=== PATIENT | female | born 1985 | race Caucasian/White ===

== ENCOUNTER 2017-07-19 17:35 | Emergency (ER) | payer OTHER ==
[~2017-07-19] VITALS: Ht 149.9 cm; Wt 60.5 kg
[2017-07-19] MEDS ORDERED: IBUPROFEN 600 MG TABLET ONE (17:51)
[2017-07-19 19:40] LABS: BASOPHILS % (AUTO) 0.2 % (0.0-2.0); EOSINOPHILS % (AUTO) 0.3 % (1.0-6.0); HEMATOCRIT 37.9 % (36-46); HEMOGLOBIN 12.9 g/dL (12.0-16.0); LYMPHOCYTES # (AUTO) 0.7 K/uL (1.0-4.8); LYMPHOCYTES % (AUTO) 5.5 % (22.0-44.0); MEAN CORPUSCULAR HEMOGLOBIN 31.4 pg (26.0-34.0); MEAN CORPUSCULAR HGB CONC 34.1 G/dL (31.0-37.0); MEAN CORPUSCULAR VOLUME 92 fL (80-100); MONOCYTES # (AUTO) 0.2 K/uL (0.1-1.0); MONOCYTES % (AUTO) 1.9 % (2.0-9.0); NEUTROPHILS # (AUTO) 11.2 K/uL (1.8-7.7); PLATELET COUNT (AUTO) 214 K/uL (150-450); RED BLOOD CELL COUNT(AUTO) 4.13 MIL/uL (4.00-5.20); RED CELL DISTRIBUTION WIDTH 13.3 % (11.5-14.5); WHITE BLOOD COUNT (AUTO) 12.2 K/uL (4.5-11.0)
[2017-07-19 19:41] LABS: NEUTROPHILS % (AUTO) 92.1 % (40.0-70.0); RBC MORPHOLOGY COMMENT NORMAL RBC MORPH
[2017-07-19 19:56] LABS: ANION GAP 11 mmol/L (8-16); CALCIUM, TOTAL 8.6 mg/dL (8.8-10.5); CARBON DIOXIDE 22 mmol/L (22-29); CHLORIDE 102 mmol/L (98-107); CREATININE 0.79 mg/dL (0.60-1.30); GLOMERULAR FILTR. RATE CALC > 60 mL/min (>60); POTASSIUM 3.3 mmol/L (3.5-5.1); SODIUM SERUM 135 mmol/L (136-145); UREA NITROGEN, BLOOD 6 mg/dL (7-18)
[2017-07-19 20:01] LABS: ALANINE AMINOTRANSFERASE 14 U/L (12-78); ALBUMIN 3.9 g/dL (3.4-5.0); BILIRUBIN,TOTAL 0.3 mg/dL (0.1-1.0); TOTAL PROTEIN, SERUM 7.3 g/dL (6.4-8.2)
[2017-07-19 20:09] LABS: APPEARANCE,URINE CLOUDY (CLEAR); GLUCOSE, URINE (UA) NEGATIVE (NEGATIVE); KETONES,URINE NEGATIVE (NEGATIVE); LEUKOCYTE ESTERASE ,URINE MODERATE (NEGATIVE); OCCULT BLOOD,URINE TRACE (NEGATIVE); PROTEIN,URINE NEGATIVE (NEGATIVE)
[2017-07-19 20:15] LABS: ADD UA MICROSCOPIC YES
[2017-07-19 20:16] LABS: ASPARTATE AMINOTRANSFERASE 13 U/L (15-37)
[2017-07-19 20:35] LABS: SQUAMOUS EPITHELIAL CELL,UR Moderate /LPF (None Seen)
[2017-07-19 20:36] LABS: WBC,URINE 26-50 /HPF (0-5)
[2017-07-19 20:37] LABS: RBC,URINE 0-2 /HPF (0-2)
[2017-07-19] MEDS ORDERED: CefTRIAXone SODIUM 1 GM/VIAL IM ONE (21:00)
[2017-07-19] MEDS ORDERED: SULFAMETHOX/TRIMETH DS 800-160 MG/TABLET PO ONE (21:00)
[2017-07-19] MEDS ORDERED: LIDOCAINE HCL/PF 1% 2 ML VIAL IM ONE (21:00)
[2017-07-19] MEDS ORDERED: SODIUM CHLORIDE 0.9% 1,000 ML IV ONE ×2 (21:15)
[2017-07-19 21:45] VITALS: BP 109/58
== END 2017-07-19 22:05 | disposition home or self-care (01) ==
LOC: EMS 17:38
DX: N39.0 Urinary tract infection, site not specified (principal); L08.9 Local infection of the skin and subcutaneous tissue, unspecified; H92.03 Otalgia, bilateral
CPT/HCPCS: 36415; 80053; 81001; 81025; 85025; 87086; 96372; 99284; J0696; J3490; J7030

== ENCOUNTER 2019-06-06 20:06 | Emergency (ER) | payer OTHER ==
[~2019-06-06] VITALS: Ht 149.9 cm; Wt 61.4 kg
[2019-06-06 21:20] VITALS: BP 127/72
== END 2019-06-06 21:33 | disposition home or self-care (01) ==
LOC: EMS 20:08
DX: R21 Rash and other nonspecific skin eruption (principal); R03.0 Elevated blood-pressure reading, without diagnosis of hypertension